=== PATIENT | male | born 1995 | race Caucasian/White ===

== ENCOUNTER 2024-05-23 06:38 | Emergency (ER) | payer OTHER ==
[~2024-05-23] VITALS: Ht 195.6 cm; Wt 258.0 kg
[~2024-05-23 06:38] MED LIST: ACETAMINOPHEN-1 EAC2 PO; CYCLOBENZAPRINE10 MG PO; DOXYCYCLINE HY100 MG PO; DOXYCYCLINE MO100 MG PO; IBUPROFEN600 MG PO; IBUPROFEN800 MG PO; METHOCARBAMOL500 MG NG; NEOMYCIN-POLYMY10 ML OTIC; NORCO 5-325 TA1 EACH PO; PROAIR HFA8.5 GM INH; TRAMADOL HCL50 MG PO
[2024-05-23] MEDS ORDERED: METOPROLOL SUCC25 MG PO (06:48)
[2024-05-23] MEDS ORDERED: CIPRO HC OTIC S10 ML AD (07:51)
[2024-05-23 08:01] VITALS: BP 167/100
== END 2024-05-23 08:02 | disposition home or self-care (01) ==
LOC: ED 06:38
DX: H60.91 Unspecified otitis externa, right ear (principal); E66.9 Obesity, unspecified; I10 Essential (primary) hypertension; Z88.8 Allergy status to other drugs, medicaments and biological substances; Z91.041 Radiographic dye allergy status; Z79.899 Other long term (current) drug therapy
CPT/HCPCS: 99282